=== PATIENT | female | born 1970 | race Caucasian/White ===

== ENCOUNTER 2016-05-11 21:53 | Emergency (ER) | payer SELFPAY ==
[~2016-05-11] VITALS: Wt 105.7 kg
[~2016-05-11 21:53] MED LIST: ALBUTEROL2.5 MG/0.5 INH; AMOXICILLIN500 M2 PO; CEPHALEXIN500 M1 PO; CORTISPORIN SUS10 ML OT; DAYPRO600 M1 PO; DELTASONE20 MG PO; DIFLUCAN150 MG PO; FLAGYL500 MG PO; HYDROXYZINE PAM25 M1 PO; LOPRESSOR25 MG PO; Motrin,Rufen800 MG PO; PROAIR HFA0.09 MG/AC INH; ROBAXIN750 MG PO; SYNTHROID,LEVO50 MCG PO; Synthroid,Lev100 MCG PO; Synthroid,Lev150 MCG PO; TESSALON PERLE200 MG PO; TRAMADOL HCL50 MG PO; VICODIN ES 7501 TAB PO; VISTARIL25 M2 PO; ZANTAC150 MG PO
[2016-05-11 21:56] VITALS: BP 168/98
[2016-05-11 22:29] LABS: BASO # 0.1 10*3/uL (0.0-0.1); BASO % 0.6 % (0.0-1.0); EOS # 0.3 10*3/uL (0.0-0.4); EOS % 3.3 % (1.0-4.0); HEMATOCRIT 33.9 % (37.0-47.0); HEMOGLOBIN 10.9 g/dl (12.0-16.0); LYMPH # 3.9 10*3/uL (1.3-4.4); LYMPH % 45.3 % (27.0-41.0); MEAN CELL VOLUME 88.7 fl (81.0-99.0); MEAN CORPUSCULAR HGB 28.5 pg (27.0-31.0); MEAN CORPUSCULAR HGB CONC 32.2 g/dl (33.0-37.0); MEAN PLATELET VOLUME 9.6 fl (9.6-12.3); MONO # 0.4 10*3/uL (0.1-1.0); MONO % 4.8 % (3.0-9.0); NEUT # 3.9 10*3/uL (2.3-7.9); NEUT % 45.8 % (47.0-73.0); PLATELET COUNT AUTOMATED 232 10*3/uL (130-400); RED BLOOD COUNT 3.82 10*6/uL (4.10-5.10); RED CELL DISTRI WIDTH 14.8 % (0-14.5); WHITE BLOOD COUNT 8.5 10*3/uL (4.8-10.8)
[2016-05-11 22:54] LABS: ALBUMIN 3.7 gm/dl (3.1-4.5); BILIRUBIN, TOTAL 0.2 mg/dl (0.2-1.0); POTASSIUM 3.6 mmol/L (3.5-5.1); TOTAL PROTEIN 6.7 gm/dL (6.4-8.2)
[2016-05-11 22:59] LABS: BILIRUBIN NEGATIVE (NEGATIVE); BLOOD NEGATIVE (NEGATIVE); CLARITY SL CLOUDY (CLEAR); COLOR YELLOW (YELLOW); GLUCOSE NEGATIVE (NEGATIVE); KETONE NEGATIVE (NEGATIVE); LEUKO ESTERASE 2+ (NEGATIVE); NITRITE NEGATIVE (NEGATIVE); PROTEIN NEGATIVE (NEGATIVE); SPECIFIC GRAVITY <= 1.005 (1.005-1.030); UROBILINOGEN 0.2 E.U./dl (0.2-1.0)
[2016-05-11 23:13] LABS: BACTERIA 4+; EPITHELIAL CELLS 40-45; RBC 21-30 rbc/hpf (0-2); URINE REFLEX COMMENT YES (NO); WBC TNTC wbc/hpf (0-5)
[2016-05-11] MEDS ORDERED: MACROBID100 M1 PO (23:20)
== END 2016-05-12 01:09 | disposition home or self-care (01) ==
LOC: ED 21:53
PROVIDERS: Physician Assistant
DX: N30.00 Acute cystitis without hematuria (principal); A59.9 Trichomoniasis, unspecified; I10 Essential (primary) hypertension; F17.200 Nicotine dependence, unspecified, uncomplicated; Z87.442 Personal history of urinary calculi; Z88.6 Allergy status to analgesic agent

== ENCOUNTER 2016-05-31 19:10 | Emergency (ER) | payer SELFPAY ==
[~2016-05-31] VITALS: Ht 172.7 cm; Wt 106.6 kg
[~2016-05-31 19:10] MED LIST changes: +MACROBID100 M1 PO
[2016-05-31 19:16] VITALS: BP 160/98
[2016-05-31] MEDS ORDERED: AMOXICILLIN500 M3 PO (19:24)
== END 2016-05-31 19:33 | disposition home or self-care (01) ==
LOC: ED 19:10
DX: H66.004 Acute suppurative otitis media without spontaneous rupture of ear drum, recurrent, right ear (principal); F17.200 Nicotine dependence, unspecified, uncomplicated; Z88.6 Allergy status to analgesic agent

== ENCOUNTER 2016-08-14 20:47 | Emergency (ER) | payer SELFPAY ==
[~2016-08-14] VITALS: Ht 175.2 cm; Wt 104.8 kg
[~2016-08-14 20:47] MED LIST changes: +AMOXICILLIN500 M3 PO
[2016-08-14 20:53] VITALS: BP 182/116
== END 2016-08-14 22:47 | disposition home or self-care (01) ==
LOC: ED 20:47
DX: S20.219A Contusion of unspecified front wall of thorax, initial encounter (principal); Y08.89XA Assault by other specified means, initial encounter; Y93.89 Activity, other specified; Y92.9 Unspecified place or not applicable; Y99.9 Unspecified external cause status; F17.200 Nicotine dependence, unspecified, uncomplicated; Z88.6 Allergy status to analgesic agent

== ENCOUNTER 2016-09-04 11:14 | Emergency (ER) | payer SELFPAY ==
[~2016-09-04] VITALS: Ht 172.7 cm; Wt 104.3 kg
[2016-09-04 11:21] VITALS: BP 143/93
[2016-09-04] MEDS ORDERED: CIPRODEX 0.3%-7.5 ML OT (11:40)
== END 2016-09-04 11:49 | disposition home or self-care (01) ==
LOC: ED 11:14
DX: H65.01 Acute serous otitis media, right ear (principal); F17.200 Nicotine dependence, unspecified, uncomplicated; Z88.6 Allergy status to analgesic agent

== ENCOUNTER 2016-10-26 00:08 | Emergency (ER) | payer SELFPAY ==
[~2016-10-26] VITALS: Ht 175.2 cm; Wt 108.0 kg
[~2016-10-26 00:08] MED LIST changes: +CIPRODEX 0.3%-7.5 ML OT
[2016-10-26 00:19] VITALS: BP 184/115
[2016-10-26] MEDS ORDERED: ANAPROX DS550 MG PO (01:27)
== END 2016-10-26 02:10 | disposition home or self-care (01) ==
LOC: ED 00:08
DX: S50.02XA Contusion of left elbow, initial encounter (principal); F17.200 Nicotine dependence, unspecified, uncomplicated; Z88.6 Allergy status to analgesic agent; W01.198A Fall on same level from slipping, tripping and stumbling with subsequent striking against other object, initial encounter; Y93.89 Activity, other specified; Y92.89 Other specified places as the place of occurrence of the external cause; Y99.8 Other external cause status

== ENCOUNTER 2016-12-22 22:56 | Emergency (ER) | payer SELFPAY ==
[~2016-12-22] VITALS: Ht 172.7 cm; Wt 108.0 kg
[~2016-12-22 22:56] MED LIST changes: +ANAPROX DS550 MG PO
[2016-12-22 23:02] VITALS: BP 174/114
[2016-12-23 00:14] LABS: BASO % 0.6 % (0.0-1.0); EOS # 0.2 10*3/uL (0.0-0.4); EOS % 2.8 % (1.0-4.0); HEMATOCRIT 31.6 % (37.0-47.0); HEMOGLOBIN 10.3 g/dl (12.0-16.0); LYMPH # 1.7 10*3/uL (1.3-4.4); LYMPH % 25.3 % (27.0-41.0); MEAN CORPUSCULAR HGB 28.7 pg (27.0-31.0); MEAN CORPUSCULAR HGB CONC 32.6 g/dl (33.0-37.0); MEAN PLATELET VOLUME 10.5 fl (9.6-12.3); MONO # 0.4 10*3/uL (0.1-1.0); MONO % 5.4 % (3.0-9.0); NEUT # 4.5 10*3/uL (2.3-7.9); NEUT % 65.6 % (47.0-73.0); PLATELET COUNT AUTOMATED 201 10*3/uL (130-400); RED BLOOD COUNT 3.59 10*6/uL (4.10-5.10); WHITE BLOOD COUNT 6.9 10*3/uL (4.8-10.8)
[2016-12-23 00:31] LABS: ALBUMIN 3.8 gm/dl (3.1-4.5); CREATININE 1.25 mg/dL (0.55-1.02); POTASSIUM 3.5 mmol/L (3.5-5.1); TOTAL PROTEIN 7.3 gm/dL (6.4-8.2)
== END 2016-12-23 01:32 | disposition home or self-care (01) ==
LOC: ED 22:56
PROVIDERS: Nurse Practitioner Family
DX: R51 Headache (principal); F41.9 Anxiety disorder, unspecified; F32.9 Major depressive disorder, single episode, unspecified; I10 Essential (primary) hypertension; N17.9 Acute kidney failure, unspecified; F17.200 Nicotine dependence, unspecified, uncomplicated; G43.909 Migraine, unspecified, not intractable, without status migrainosus; Z98.51 Tubal ligation status; Z88.6 Allergy status to analgesic agent

== ENCOUNTER 2017-02-26 11:48 | Emergency (ER) | payer BC ==
[~2017-02-26] VITALS: Ht 175.2 cm; Wt 102.5 kg
[2017-02-26 11:54] VITALS: BP 155/97
[2017-02-26] MEDS ORDERED: NAPROSYN500 MG PO (12:00)
[2017-02-26] MEDS ORDERED: CHLORZOXAZONE500 M2 PO (12:00)
== END 2017-02-26 14:47 | disposition home or self-care (01) ==
LOC: ED 11:48
DX: S63.502A Unspecified sprain of left wrist, initial encounter (principal); M54.5 Low back pain; I10 Essential (primary) hypertension; F41.9 Anxiety disorder, unspecified; F32.9 Major depressive disorder, single episode, unspecified; F17.200 Nicotine dependence, unspecified, uncomplicated; Z98.51 Tubal ligation status; Z88.6 Allergy status to analgesic agent; W19.XXXA Unspecified fall, initial encounter; Y93.89 Activity, other specified; Y92.89 Other specified places as the place of occurrence of the external cause; Y99.8 Other external cause status

== ENCOUNTER → 2017-04-16 | Outpatient (CLI) | payer BC ==
[~2017-04-16] MED LIST changes: +CHLORZOXAZONE500 M2 PO; +NAPROSYN500 MG PO
== END | disposition home or self-care (01) ==
LOC: RAD 10:59
DX: M54.9 Dorsalgia, unspecified (principal); M54.2 Cervicalgia; R20.0 Anesthesia of skin; M54.6 Pain in thoracic spine

== ENCOUNTER 2017-07-11 00:16 | Emergency (ER) | payer OTHER, BC ==
[~2017-07-11] VITALS: Wt 98.4 kg
[2017-07-11 00:17] VITALS: BP 130/83
[2017-07-11] MEDS ORDERED: ANAPROX DS550 MG PO (01:42)
== END 2017-07-11 02:01 | disposition home or self-care (01) ==
LOC: ED 00:16
DX: S50.312A Abrasion of left elbow, initial encounter (principal); M54.5 Low back pain; M25.571 Pain in right ankle and joints of right foot; F17.200 Nicotine dependence, unspecified, uncomplicated; Z98.51 Tubal ligation status; Z98.890 Other specified postprocedural states; Z88.5 Allergy status to narcotic agent; W01.0XXA Fall on same level from slipping, tripping and stumbling without subsequent striking against object, initial encounter; Y93.89 Activity, other specified; Y92.89 Other specified places as the place of occurrence of the external cause; Y99.9 Unspecified external cause status

== ENCOUNTER 2017-09-12 23:44 | Emergency (ER) | payer MEDICAID ==
[~2017-09-12] VITALS: Ht 175.2 cm; Wt 101.6 kg
[2017-09-12 23:45] VITALS: BP 134/65
[2017-09-12] MEDS ORDERED: Motrin,Rufen800 MG PO (23:56)
[2017-09-12] MEDS ORDERED: PREDNISONE20 M1 PO (23:56)
== END 2017-09-13 00:25 | disposition home or self-care (01) ==
LOC: ED 23:44
DX: H69.91 Unspecified Eustachian tube disorder, right ear (principal); F17.200 Nicotine dependence, unspecified, uncomplicated; I10 Essential (primary) hypertension; Z88.5 Allergy status to narcotic agent; Z98.51 Tubal ligation status

== ENCOUNTER → 2017-10-22 | Outpatient (CLI) | payer OTHER ==
[~2017-10-22] MED LIST changes: +PREDNISONE20 M1 PO
== END | disposition home or self-care (01) ==
LOC: MRI 12:47
DX: M25.532 Pain in left wrist (principal); R20.0 Anesthesia of skin; R20.2 Paresthesia of skin; R06.02 Shortness of breath; R05 Cough; I10 Essential (primary) hypertension; Z87.891 Personal history of nicotine dependence

== ENCOUNTER → 2017-11-01 | Outpatient (CLI) | payer OTHER | END | disposition home or self-care (01) | LOC: EDSTATUS 10:00 | DX: S63.592A Other specified sprain of left wrist, initial encounter (principal); I10 Essential (primary) hypertension; X58.XXXA Exposure to other specified factors, initial encounter; Y93.89 Activity, other specified; Y92.89 Other specified places as the place of occurrence of the external cause; Y99.8 Other external cause status; Z79.899 Other long term (current) drug therapy ==

== ENCOUNTER → 2018-01-30 | Outpatient (CLI) | payer OTHER | END | disposition home or self-care (01) | LOC: ORTHO 08:06 | DX: M25.522 Pain in left elbow (principal); Z91.81 History of falling ==

== ENCOUNTER 2020-12-12 22:13 | Emergency (ER) | payer OTHER ==
[~2020-12-12] VITALS: Ht 172.7 cm
[~2020-12-12 22:13] MED LIST changes: +PROAIR HFA8.5 GM INH; +TESSALON PERLE100 M1 PO; +ZITHROMAX250 MG PO
[2020-12-12] MEDS ORDERED: ATORVASTATIN CA80 M1 PO (22:38)
[2020-12-12] MEDS ORDERED: CETIRIZINE HYDR10 MG PO (22:39)
[2020-12-12] MEDS ORDERED: FLUOXETINE HYDR20 M1 PO (22:39)
[2020-12-12] MEDS ORDERED: LEVOTHYROXINE150 MCG PO (22:39)
[2020-12-12] MEDS ORDERED: BISOPROLOL-HCT1 EACH PO (22:39)
[2020-12-12] MEDS ORDERED: SEROQUEL XR150 MG PO (22:39)
[2020-12-12] MEDS ORDERED: VITAMIN D350 MC2 PO (22:40)
[2020-12-12] MEDS ORDERED: DICLOFENAC SOD100 G1 T (22:40)
[2020-12-12] MEDS ORDERED: SUMATRIPTAN SUC50 M1 PO (22:40)
[2020-12-12] MEDS ORDERED: PROVENTIL HFA6.7 GM INH (22:41)
[2020-12-12 23:07] LABS: BASO # 0.1 10*3/uL (0.0-0.1); BASO % 0.9 % (0.0-1.0); EOS # 0.3 10*3/uL (0.0-0.4); EOS % 3.5 % (1.0-4.0); HEMATOCRIT 41.1 % (37.0-47.0); LYMPH # 2.8 10*3/uL (1.3-4.4); LYMPH % 34.9 % (27.0-41.0); MEAN CELL VOLUME 93.6 fl (81.0-99.0); MEAN CORPUSCULAR HGB 31.9 pg (27.0-31.0); MEAN CORPUSCULAR HGB CONC 34.1 g/dl (33.0-37.0); MEAN PLATELET VOLUME 9.9 fl (9.6-12.3); MONO # 0.4 10*3/uL (0.1-1.0); MONO % 5.2 % (3.0-9.0); NEUT # 4.4 10*3/uL (2.3-7.9); NEUT % 55.2 % (47.0-73.0); PLATELET COUNT AUTOMATED 227 10*3/uL (130-400); RED BLOOD COUNT 4.39 10*6/uL (4.10-5.10); RED CELL DISTRI WIDTH 14.3 % (0-14.5)
[2020-12-12 23:20] LABS: CREATININE 1.22 mg/dL (0.55-1.02); POTASSIUM 3.1 mmol/L (3.5-5.1)
== END 2020-12-13 02:29 | disposition home or self-care (01) ==
LOC: ED 22:13
PROVIDERS: Internal Medicine
DX: N93.9 Abnormal uterine and vaginal bleeding, unspecified (principal); E87.6 Hypokalemia; N18.30 Chronic kidney disease, stage 3 unspecified; Z88.6 Allergy status to analgesic agent; Z79.899 Other long term (current) drug therapy; F17.200 Nicotine dependence, unspecified, uncomplicated

== ENCOUNTER 2021-07-02 18:48 | Emergency (ER) | payer OTHER ==
[~2021-07-02] VITALS: Wt 93.4 kg
[~2021-07-02 18:48] MED LIST changes: +ATORVASTATIN CA80 M1 PO; +BISOPROLOL-HCT1 EACH PO; +CETIRIZINE HYDR10 MG PO; +DICLOFENAC SOD100 G1 T; +FLUOXETINE HYDR20 M1 PO; +LEVOTHYROXINE150 MCG PO; +PROVENTIL HFA6.7 GM INH; +SEROQUEL XR150 MG PO; +SUMATRIPTAN SUC50 M1 PO; +VITAMIN D350 MC2 PO
[2021-07-02 19:07] VITALS: BP 136/83
[2021-07-02] MEDS ORDERED: CEFDINIR300 MG PO (19:16)
[2021-07-02] MEDS ORDERED: CETIRIZINE10 MG PO (19:16)
== END 2021-07-02 19:28 | disposition home or self-care (01) ==
LOC: ED 18:48
DX: H65.03 Acute serous otitis media, bilateral (principal); F17.200 Nicotine dependence, unspecified, uncomplicated; Z98.51 Tubal ligation status; Z79.899 Other long term (current) drug therapy; Z88.5 Allergy status to narcotic agent

== ENCOUNTER 2021-07-21 22:13 | Observation (INO) | payer OTHER ==
[~2021-07-21] VITALS: Ht 175.3 cm; Wt 93.4 kg
[~2021-07-21 22:13] MED LIST changes: +CEFDINIR300 MG PO; +CETIRIZINE10 MG PO
[2021-07-21 22:38] VITALS: BP 150/103
[2021-07-21 22:48] LABS: BASO # 0.1 10*3/uL (0.0-0.1); BASO % 1.1 % (0.0-1.0); EOS # 0.4 10*3/uL (0.0-0.4); EOS % 6.2 % (1.0-4.0); HEMATOCRIT 41.9 % (37.0-47.0); LYMPH # 3.3 10*3/uL (1.3-4.4); LYMPH % 52.8 % (27.0-41.0); MEAN CELL VOLUME 94.2 fl (81.0-99.0); MEAN CORPUSCULAR HGB 31.2 pg (27.0-31.0); MEAN CORPUSCULAR HGB CONC 33.2 g/dl (33.0-37.0); MEAN PLATELET VOLUME 10.9 fl (9.6-12.3); MONO # 0.4 10*3/uL (0.1-1.0); MONO % 6.4 % (3.0-9.0); NEUT # 2.1 10*3/uL (2.3-7.9); NEUT % 33.3 % (47.0-73.0); PLATELET COUNT AUTOMATED 180 10*3/uL (130-400); RED BLOOD COUNT 4.45 10*6/uL (4.10-5.10); RED CELL DISTRI WIDTH 13.6 % (0-14.5); WHITE BLOOD COUNT 6.3 10*3/uL (4.8-10.8)
[2021-07-21 23:03] LABS: CREATININE 1.26 mg/dL (0.55-1.02); POTASSIUM 3.7 mmol/L (3.5-5.1); TOTAL PROTEIN 7.3 gm/dL (6.4-8.2)
[2021-07-21 23:06] LABS: ACT PARTIAL THROMBO TIME 28.5 SECONDS (20.0-32.1)
[2021-07-22] VITALS: BP 150/52
[2021-07-22 05:33] VITALS: BP 152/97
[2021-07-22 06:03] LABS: BUN 11 mg/dl (7-24); CHLORIDE 110 mmol/L (98-107); CHOLESTEROL 251 mg/dL (<200); CREATININE 1.14 mg/dL (0.55-1.02); LDL CHOLESTEROL 159 mg/dL (9-159); POTASSIUM 3.4 mmol/L (3.5-5.1); SODIUM 142 mmol/L (136-145); TRIGLYCERIDES 231 mg/dl (<150)
[2021-07-22 06:17] LABS: BASO # 0.1 10*3/uL (0.0-0.1); BASO % 1.4 % (0.0-1.0); EOS # 0.3 10*3/uL (0.0-0.4); EOS % 6.3 % (1.0-4.0); HEMATOCRIT 41.9 % (37.0-47.0); LYMPH # 2.5 10*3/uL (1.3-4.4); LYMPH % 49.7 % (27.0-41.0); MEAN CELL VOLUME 92.7 fl (81.0-99.0); MEAN CORPUSCULAR HGB CONC 33.4 g/dl (33.0-37.0); MEAN PLATELET VOLUME 11.4 fl (9.6-12.3); MONO # 0.3 10*3/uL (0.1-1.0); MONO % 6.7 % (3.0-9.0); NEUT # 1.8 10*3/uL (2.3-7.9); NEUT % 35.7 % (47.0-73.0); PLATELET COUNT AUTOMATED 181 10*3/uL (130-400); RED BLOOD COUNT 4.52 10*6/uL (4.10-5.10); RED CELL DISTRI WIDTH 13.6 % (0-14.5); WHITE BLOOD COUNT 5.1 10*3/uL (4.8-10.8)
[2021-07-22 06:30] LABS: FREE T4 0.37 ng/dl (0.76-1.46)
[2021-07-22 07:14] VITALS: BP 157/97
[2021-07-22 12:00] VITALS: BP 142/96
[2021-07-22] MEDS ORDERED: SYNTHROID,LEV175 MCG PO (12:04)
== END 2021-07-22 14:04 | disposition home or self-care (01) ==
LOC: ED 22:13 → EDHOLD 07-22 02:03 → 4E 07-22 02:03
PROVIDERS: Emergency Medicine; Family Medicine; ADMIT Internal Medicine; ATTEND Internal Medicine
DX: R07.89 Other chest pain (principal); E78.5 Hyperlipidemia, unspecified; E03.9 Hypothyroidism, unspecified; F41.9 Anxiety disorder, unspecified; I12.9 Hypertensive chronic kidney disease with stage 1 through stage 4 chronic kidney disease, or unspecified chronic kidney disease; N18.31 Chronic kidney disease, stage 3a; E87.8 Other disorders of electrolyte and fluid balance, not elsewhere classified; E83.41 Hypermagnesemia; Z79.899 Other long term (current) drug therapy

== ENCOUNTER 2021-09-06 20:27 | Emergency (ER) | payer OTHER ==
[~2021-09-06 20:27] MED LIST changes: +SYNTHROID,LEV175 MCG PO
[2021-09-06 20:38] VITALS: BP 138/73
[2021-09-07] MEDS ORDERED: IBUPROFEN600 MG PO (00:02)
== END 2021-09-07 00:30 | disposition home or self-care (01) ==
LOC: ED 20:27
DX: S90.31XA Contusion of right foot, initial encounter (principal); Z88.8 Allergy status to other drugs, medicaments and biological substances; Z79.899 Other long term (current) drug therapy; Z98.51 Tubal ligation status; Z98.890 Other specified postprocedural states; Z87.891 Personal history of nicotine dependence; W22.8XXA Striking against or struck by other objects, initial encounter; Y93.89 Activity, other specified; Y92.89 Other specified places as the place of occurrence of the external cause; Y99.8 Other external cause status

== ENCOUNTER 2021-11-17 10:21 | Emergency (ER) | payer OTHER ==
[~2021-11-17] VITALS: Ht 175.2 cm; Wt 90.7 kg
[~2021-11-17 10:21] MED LIST changes: +IBUPROFEN600 MG PO
[2021-11-17 10:35] VITALS: BP 155/96
== END 2021-11-17 13:09 | disposition home or self-care (01) ==
LOC: ED 10:21
DX: S49.81XA Other specified injuries of right shoulder and upper arm, initial encounter (principal); F17.200 Nicotine dependence, unspecified, uncomplicated; F14.10 Cocaine abuse, uncomplicated; Z98.890 Other specified postprocedural states; Z79.899 Other long term (current) drug therapy; Z88.5 Allergy status to narcotic agent; X50.1XXA Overexertion from prolonged static or awkward postures, initial encounter; Y93.89 Activity, other specified; Y92.89 Other specified places as the place of occurrence of the external cause; Y99.9 Unspecified external cause status